=== PATIENT | male | born 1975 | race Caucasian/White ===

== ENCOUNTER 2018-12-03 12:59 | Emergency (ER) | payer BC ==
[2018-12-03 13:11] VITALS: BMI 29.9
--- NOTE | 2018-12-03 13:17 | C.PDOC ---
History Of Present Illness Patient is a 43 year old male who presents to the ED for evaluation of new onset lower back pain x1 week. Patient states that he initially felt a sharp pain in his lower back, but states that now the lower back pain is radiating to his genitals and bilateral inner thighs and it is worse with prolonged sitting. He reports that he does a lot of heavy lifting chronically at work. He states that he has not tried any pain medications and has had normal bowel movements. Patient denies any difficulty urinating, fever, chills, weakness, or numbness. Time Seen by Provider: 12/03/18 13:14 Chief Complaint (Nursing): Back Pain History Per: Patient History/Exam Limitations: no limitations Onset/Duration Of Symptoms: Days (one week) Current Symptoms Are (Timing): Still Present Quality Of Discomfort: "Pain" Associated Symptoms: denies: Incontinence, New Weakness, New Numbness Exacerbating Factor(s): Sitting (prolonged) Recent travel outside of the [place]: No Additional History Per: Patient Past Medical History Reviewed: Historical Data, Nursing Documentation, Vital Signs Primary Care Provider: Renny Rodriguez - Medical History PMH: No Chronic Diseases Surgical History: Cholecystectomy - [facility] Procedures ESOPHAGOGASTRODUODENOSCOPY [EGD] W/CLOSED BIOPSY (08/06/06) Family History: States: No Known Family Hx - Social History Hx Alcohol Use: No Hx Substance Use: No - Immunization History Hx Tetanus Toxoid Vaccination: No Hx Influenza Vaccination: No Hx Pneumococcal Vaccination: No Review Of Systems Except As Marked, All Systems Reviewed And Found Negative. Constitutional: Negative for: Fever, Chills Genitourinary: Negative for: Incontinence Musculoskeletal: Positive for: Back Pain (lower back radiating to genitals and bilateral inner thighs) Neurological: Negative for: Weakness, Numbness Physical Exam - Physical Exam Appears: Non-toxic, No Acute Distress Skin: Warm, Dry Head: Atraumatic, Normacephalic Eye(s): bilateral: Normal Inspection Neck: Supple Chest: Symmetrical, No Deformity Cardiovascular: Rhythm Regular, No Murmur Respiratory: Other (NARD) Back: No CVA Tenderness, No Vertebral Tenderness, No Paraspinal Tenderness Extremity: Normal ROM Neurological/Psych: Oriented x3, Normal Speech, Normal Cognition, Normal Motor, Normal Sensation, Normal Reflexes, Other (NEURO INTACT) ED Course And Treatment - Other Rad Xray Lumbar Spine X-Ray: Interpreted by Me, Viewed By Me Interpretation: No fracture or lytic lesions. Progress Note: Plan: Xray Lumbar Spine. Urine Culture. UA. Tylenol 975mg PO. Flexeril 10mg PO. Decadron 12mg PO. Neurontin 300mg PO. Motrin 600mg PO. Lidoderm 5% 1ea TD Disposition Counseled Patient/Family Regarding: Studies Performed, Diagnosis, Need For Followup, Rx Given - Disposition Referrals: Renny Rodriguez MD [Staff Provider] - Disposition: HOME/ ROUTINE Disposition Time: 14:00 Condition: IMPROVED Additional Instructions: WEAR BACK BRACE ADVISED. FOLLOW UP PMD AND/OR SPECIALIST FOR POSSIBLE MRI. RETURN IF WORSENING SYMPTOMS. Prescriptions: Acetaminophen [Tylenol Extra Strength] 2 tab PO Q6 #30 tablet Cyclobenzaprine [Flexeril] 5 mg PO TID #12 tab Gabapentin [Neurontin] 300 mg PO TID #30 cap Ibuprofen [Motrin] 600 mg PO Q6 #30 tab Instructions: Radiculopathy (DC) Forms: Receptor (Cuban), Work Excuse - Clinical Impression Clinical Impression: Low back pain, Lumbar radiculopathy - Scribe Statement The provider has reviewed the documentation as recorded by the Reeseibjackelyn Zimmer All medical record entries made by the Reeseibjackelyn were at my direction and personally dictated by me. I have reviewed the chart and agree that the record accurately reflects my personal performance of the history, physical exam, medical decision making, and the department course for this patient. I have also personally directed, reviewed, and agree with the discharge instructions and disposition.
[2018-12-03 13:20] VITALS: BP 146/93; PULSE 101; TEMP 98.6; O2SAT 97
[2018-12-03] MEDS ORDERED: Lidocaine 5% Patch TD STA (13:35)
[2018-12-03] MEDS ORDERED: Lidocaine 5% Patch TD ONE (13:50)
[2018-12-03 13:56] LABS: URINE BILIRUBIN NEGATIVE (NEGATIVE); URINE BLOOD NEGATIVE (NEGATIVE); URINE CLARITY Clear (Clear); URINE COLOR Yellow (YELLOW); URINE GLUCOSE (UA) NORMAL (Normal); URINE LEUKOCYTE ESTERASE NEG Leu/uL (Negative); URINE PROTEIN NEGATIVE (NEGATIVE); URINE UROBILINOGEN NORMAL mg/dL (0.2-1.0)
--- NOTE | 2018-12-03 14:54 | RAD ---
Date of service: 12/03/2018 PROCEDURE: Radiographs of the Lumbar Spine. Three views. HISTORY: PAIN COMPARISON: None available. FINDINGS: BONES: Alignment appears satisfactory. No listhesis. No acute displaced fracture identified. DISC SPACES: Unremarkable. OTHER FINDINGS: None. IMPRESSION: No acute displaced fracture or dislocation identified.
[2018-12-03 14:57] VITALS: RESP 18
== END 2018-12-03 14:56 | disposition home or self-care (01) ==
LOC: C.ER 12:59
DX: M54.16 Radiculopathy, lumbar region (principal)
CPT/HCPCS: 72100; 81001; 87086; 99283; J8540